=== PATIENT | male | born 1975 | race Caucasian/White ===

== ENCOUNTER 2017-07-30 23:54 | Emergency (ER) | payer SELFPAY ==
[2017-07-30] MEDS ORDERED: Albuterol/Ipratropium 3.0-0.5 MG/3 ML Neb Soln NEB ONE (23:55)
[2017-07-31] MEDS ORDERED: methylPREDNISolone Sodium Succinate 125 MG/2 ML SDV ONE
[2017-07-31] MEDS ORDERED: methylPREDNISolone Sodium Succinate 125 MG/2 ML SDV IVPUSH ONE (00:08)
--- NOTE | 2017-07-31 00:32 | EDM.PDOC ---
ED HPI GENERAL MEDICAL PROBLEM - General Chief Complaint: Respiratory Problem Stated Complaint: SHORTNESS OF BREATH Time Seen by Provider: 07/31/17 00:15 - History of Present Illness INITIAL COMMENTS - FREE TEXT/NARRATIVE: HISTORY AND PHYSICAL: History of present illness: Patient 42-year-old male presents concerned shortness of breath and wheezing he states he's had similar episodes in the past and has used an inhaler but states he's had Pulmicort function test and has not been diagnosed with asthma. He denies fever chills nausea vomiting chest pain or other concern Review of systems: As per history of present illness and below otherwise all systems reviewed and negative. Past medical history: As per history of present illness and as reviewed below otherwise noncontributory. Surgical history: As per history of present illness and as reviewed below otherwise noncontributory. Social history: No reported history of drug or alcohol abuse. Family history: As per history of present illness and as reviewed below otherwise noncontributory. Physical exam: HEENT: Atraumatic, normocephalic, pupils reactive, negative for conjunctival pallor or scleral icterus, mucous membranes moist, throat clear, neck supple, nontender, trachea midline. Lungs: GERD wheezing breath sounds equal bilaterally, chest nontender. Heart: S1S2, regular, negative for clicks, rubs, or JVD. Abdomen: Soft, nondistended, nontender. Negative for masses or hepatosplenomegaly. Negative for costovertebral tenderness. Pelvis: Stable nontender. Genitourinary: Deferred. Rectal: Deferred. Extremities: Atraumatic, negative for cords or calf pain. Neurovascular unremarkable. Neuro: Awake, alert, oriented. Cranial nerves II through XII unremarkable. Cerebellum unremarkable. Motor and sensory unremarkable throughout. Exam nonfocal. Diagnostics: CBC CMP chest x-ray influenza screening Therapeutics: Ipratropium albuterol nebulizer Solu-Medrol 125 mg IV Impression: #1 dyspnea #2 reactive airway disease Definitive disposition and diagnosis as appropriate pending reevaluation and review of above. head Pain Score (Numeric/FACES): 9 - Related Data Allergies Allergy/AdvReac Type Severity Reaction Status Date / Time No Known Allergies Allergy Verified 07/31/17 00:06 Home Meds: Home Meds Albuterol [Ventolin HFA] 0 07/31/17 [History] ED ROS GENERAL - Review of Systems Review Of Systems: ROS reveals no pertinent complaints other than HPI. ED EXAM, GENERAL - Physical Exam Exam: See Below (Dictation) Course - Vital Signs Last Recorded V/S: Last Vital Signs Temp 37.1 C 07/30/17 23:54 Pulse 96 07/31/17 00:35 Resp 24 H 07/31/17 00:35 BP 105/63 07/31/17 00:35 Pulse Ox 96 07/31/17 00:35 - Orders/Labs/Meds Orders: Active Orders 24 hr Category Date Time Status RT Aerosol Therapy [RC] ASDIRECTED Care 07/30/17 23:55 Active Chest 2V [CR] Stat Exams 07/30/17 23:55 Taken Labs: Laboratory Tests 07/31/17 07/31/17 Range/Units 00:00 00:00 WBC 8.33 (4.0-11.0) K/uL RBC 4.62 (4.50-5.90) M/uL Hgb 13.9 (13.0-17.0) g/dL Hct 41.8 (38.0-50.0) % MCV 90.5 (80.0-98.0) fL MCH 30.1 (27.0-32.0) pg MCHC 33.3 (31.0-37.0) g/dL RDW Std Deviation 49.1 (28.0-62.0) fl RDW Coeff of Bonnie 15 (11.0-15.0) % Plt Count 316 (150-400) K/uL MPV 9.60 (7.40-12.00) fL Neut % (Auto) 37.5 L (48.0-80.0) % Lymph % (Auto) 39.0 (16.0-40.0) % [place] % (Auto) 8.5 (0.0-15.0) % Eos % (Auto) 14.2 H (0.0-7.0) % Baso % (Auto) 0.8 (0.0-1.5) % Neut # (Auto) 3.1 (1.4-5.7) K/uL Lymph # (Auto) 3.3 H (0.6-2.4) K/uL [place] # (Auto) 0.7 (0.0-0.8) K/uL Eos # (Auto) 1.2 H (0.0-0.7) K/uL Baso # (Auto) 0.1 (0.0-0.1) K/uL Nucleated RBC % 0.0 /100WBC Nucleated RBCs # 0 K/uL Sodium 141 (136-146) mmol/L Potassium 4.4 (3.5-5.1) mmol/L Chloride 103 (98-110) mmol/L Carbon Dioxide 27 (21-31) mmol/L BUN 29 H (6.0-23.0) mg/dL Creatinine 1.5 (0.6-1.5) mg/dL Est Cr Clr Drug Dosing TNP Estimated GFR (MDRD) 51.3 ml/min Glucose 115 H (60-110) mg/dL Calcium 9.9 (8.8-10.8) mg/dL Total Bilirubin 0.4 (0.1-1.5) mg/dL AST 23 (5-40) IU/L ALT 35 (8-54) IU/L Alkaline Phosphatase 39 L (40-150) Total Protein 7.3 (6.0-8.0) g/dL Albumin 4.3 (3.5-5.0) g/dL Globulin 3.0 (2.0-3.5) g/dL Albumin/Globulin Ratio 1.4 (1.3-2.8) Meds: Medications Discontinued Medications Generic Name Dose Route Start Last Admin Trade Name Freq PRN Reason Stop Dose Admin Albuterol/Ipratropium 3 ml 07/30/17 23:55 07/31/17 00:08 Duoneb 3.0-0.5 Mg/3 Ml NEB 07/30/17 23:56 3 ml ONETIME ONE Administration Methylprednisolone Sodium Succinate Confirm 07/31/17 00:00 07/31/17 00:09 Solu-Medrol Administered 07/31/17 00:01 Not Given Dose 125 mg .ROUTE .STK-MED ONE Methylprednisolone Sodium Succinate 125 mg 07/31/17 00:08 07/31/17 00:09 Solu-Medrol IVPUSH 07/31/17 00:09 125 mg ONETIME ONE Administration Departure - Departure Time of Disposition: 01:11 Disposition: Home, Self-Care 01 Condition: Good Clinical Impression: Reactive airway disease - Discharge Information Forms: ED Department Discharge Additional Instructions: The following information is given to patients seen in the emergency department who are being discharged to home. This information is to outline your options for follow-up care. We provide all patients seen in our emergency department with a follow-up referral. The need for follow-up, as well as the timing and circumstances, are variable depending upon the specifics of your emergency department visit. If you don't have a primary care physician on staff, we will provide you with a referral. We always advise you to contact your personal physician following an emergency department visit to inform them of the circumstance of the visit and for follow-up with them and/or the need for any referrals to a consulting specialist. The emergency department will also refer you to a specialist when appropriate. This referral assures that you have the opportunity for followup care with a specialist. All of these measure are taken in an effort to provide you with optimal care, which includes your followup. Under all circumstances we always encourage you to contact your private physician who remains a resource for coordinating your care. When calling for followup care, please make the office aware that this follow-up is from your recent emergency room visit. If for any reason you are refused follow-up, please contact the [facility] emergency department at and asked to speak to the emergency department charge nurse. Albuterol Medrol as prescribed follow-up primary medical doctor 1-2 days return as needed as discussed - My Orders Last 24 Hours: My Active Orders 07/30/17 23:55 RT Aerosol Therapy [RC] ASDIRECTED Chest 2V [CR] Stat - Assessment/Plan Last 24 Hours: My Active Orders 07/30/17 23:55 RT Aerosol Therapy [RC] ASDIRECTED Chest 2V [CR] Stat
[2017-07-31 00:45] LABS: CHLORIDE,CL 103 mmol/L (98-110); SODIUM,NA 141 mmol/L (136-146)
[2017-07-31] MEDS ORDERED: Albuterol/Ipratropium 3.0-0.5 MG/3 ML Neb Soln NEB ONE (01:13)
--- NOTE | 2017-07-31 09:18 | CR ---
EXAM DATE: 07/30/17 PATIENT'S AGE: 42 Patient: ERVIN CUNNINGHAM Facility: [place], [place] Site . Site : [id number] Study: XRay Chest [id number]/[id number] 12:20:59 AM Ordering Physician: Doctor Rivera Final Report: INDICATION: Shortness of breath TECHNIQUE: Chest 2 views. COMPARISON: None FINDINGS: Cardiovascular and mediastinum: Heart size and vasculature are normal in caliber and appearance. Mediastinum is within normal limits. Lungs and pleural spaces: Lungs are clear. No sign of infiltrate or mass. No sign of pleural effusion. No pneumothorax. Bones and soft tissues: No significant findings. IMPRESSION: No sign of acute disease. Dictated by Charisma Harding MD @ Jul 31 2017 12:23AM (Electronic Signature) Report Signed by Proxy. GEOVANNA
== END 2017-07-31 01:40 | disposition home or self-care (01) ==
LOC: MW.ED 23:54
DX: J45.909 Unspecified asthma, uncomplicated (principal)
CPT/HCPCS: 36415; 71046; 80053; 85025; 87804; 94640; 96374; 99285; J2930; 99283

== ENCOUNTER 2018-12-01 16:01 | Emergency (ER) | payer SELFPAY ==
[2018-12-01] MEDS ORDERED: Ketorolac 30 MG/ML SDV IVPUSH ONE (16:33)
[2018-12-01] MEDS ORDERED: Sodium Chloride 0.9% 1,000 ML IV ONE (16:33)
--- NOTE | 2018-12-01 16:35 | EDM.PDOC ---
<Lyudmila Martinez - Last Filed: 12/01/18 22:17> ED HPI GENERAL MEDICAL PROBLEM - General Chief Complaint: General Stated Complaint: DONT FEEL GOOD Time Seen by Provider: 12/01/18 16:11 Source of Information: Reports: Patient History Limitations: Reports: No Limitations - History of Present Illness INITIAL COMMENTS - FREE TEXT/NARRATIVE: HISTORY AND PHYSICAL: History of present illness: Patient is a 43-year-old male presents to the ED today with concern of general malaise and being tired 2 days, worsening over the past 24 hours. Patient states he also has generalized body aches. Patient states he arrived at work today and sat down in a chair and felt like he could not physically get up to work. Patient came to the ED after work states this is unusual for him. Patient states he went to the gym to lift weights 7 days in a row (last week) and shortly after noticed that he has been feeling this way. Patient states he doesn 't typically lift weights this much. Patient states he is also concerned that he may have sexually transmitted infection which would be causing his symptoms. Patient states he has a history of asthma but denies any other health history. Patient states he does not use tobacco, alcohol, or any other substances. Patient denies fever, chills, chest pain, shortness of breath, or cough. Denies headache, neck stiff ness, change in vision, syncope, or near syncope. Denies nausea, vomiting, abdominal pain, diarrhea, constipation, or dysuria. Has not noted any blood in urine or stool. Patient has been eating and drinking appropriately. Review of systems: As per history of present illness and below otherwise all systems reviewed and negative. Past medical history: As per history of present illness and as reviewed below otherwise noncontributory. Surgical history: As per history of present illness and as reviewed below otherwise noncontributory. Social history: See social history for further information Family history: As per history of present illness and as reviewed below otherwise noncontributory. Physical exam: General: Patient is alert, oriented, and in no acute distress. Patient laying comfortably on exam table but does appear tired. HEENT: Atraumatic, normocephalic, pupils equal and reactive bilaterally, negative for conjunctival pallor or scleral icterus, mucous membranes moist, TMs normal bilaterally, throat clear, neck supple, nontender, trachea midline. No drooling or trismus noted. No meningeal signs. No hot potato voice noted. Lungs: Clear to auscultation, breath sounds equal bilaterally, chest nontender. Heart: S1S2, regular rate and rhythm without overt murmur Abdomen: Soft, nondistended, nontender. Negative for masses or hepatosplenomegaly. Negative for costovertebral tenderness. Pelvis: Stable nontender. Genitourinary: Deferred. Rectal: Deferred. Skin: Intact, warm, dry. No lesions or rashes noted. Extremities: Atraumatic, negative for cords or calf pain. Neurovascular unremarkable. Neuro: Awake, alert, oriented. Cranial nerves II through XII unremarkable. Cerebellum unremarkable. Motor and sensory unremarkable throughout. Exam nonfocal. Notes: Dr. Palmer involved in patient care. We are having issues with EMS transfers not available, as well as our hospital being at capacity with no beds available. Patient remained in ER and repeat troponin was done. The troponin has increased. Working on arranging EMS transfer from further out facilities. Patient remains with no chest pain and denies any other symptoms or new symptoms. No changes in repeat EKG. We'll continue to monitor patient presents stating ED. [facility] in [place] was consult on patient and will transfer to Dr. Miguel via EMS. instructed to hold nitropaste per Dr. Migule. Ambulance arranged and remains 2.5 to 3 hours out. Patient made aware and remains chest pain free. Voices understanding and is agreeable to plan of care. Denies any further questions or concerns at this time. Diagnostics: CBC, CMP, UA, CPK, influenza, and increased jannet, strep, troponinx2, EKG x2, chest x-ray Therapeutics: Saline, Toradol, Lovenox, ASA Impression: Elevated troponin General malaise Plan: 1. Transfer to [facility] to Dr. Miguel via EMS. Definitive disposition and diagnosis as appropriate pending reevaluation and review of above. generalized Pain Score (Numeric/FACES): 2 - Related Data Allergies Allergy/AdvReac Type Severity Reaction Status Date / Time No Known Allergies Allergy Verified 12/01/18 16:14 Home Meds: Home Meds Albuterol [Ventolin HFA] 1 - 2 puff INH Q4H PRN 07/31/17 [History] Budesonide/Formoterol [Symbicort 160-4.5 MCG] 2 puff INH BID 12/01/18 [History] Past Medical History - Past Health History Medical/Surgical History: Denies Medical/Surgical History Respiratory History: Reports: Bronchitis, Recurrent - Infectious Disease History Infectious Disease History: Reports: Chicken Pox - Past Surgical History HEENT Surgical History: Reports: Naso-Sinus Surgery GI Surgical History: Reports: Hernia Repair/Other, Other (See Below) Other GI Surgeries/Procedures: Hernia Social & Family History - Family History Family Medical History: Noncontributory Cardiac: Reports: CAD Respiratory: Reports: Asthma - Tobacco Use Smoking Status *Q: Never Smoker - Recreational Drug Use Recreational Drug Use: No ED ROS GENERAL - Review of Systems Review Of Systems: ROS reveals no pertinent complaints other than HPI. ED EXAM, GENERAL - Physical Exam Exam: See Below (See dictation) Course - Vital Signs Last Recorded V/S: Last Vital Signs Temp 36.3 C 12/02/18 00:32 Pulse 52 L 12/02/18 00:32 Resp 16 12/02/18 00:32 BP 132/76 12/02/18 00:32 Pulse Ox 96 12/02/18 00:32 - Orders/Labs/Meds Orders: Active Orders 24 hr Category Date Time Status EKG Documentation Completion [RC] STAT Care 12/01/18 16:32 Active EKG Documentation Completion [RC] STAT Care 12/01/18 18:42 Active EKG Documentation Completion [RC] STAT Care 12/02/18 01:20 Active CHLAMYDIA AND GONORRHEA BY TMA Stat Lab 12/01/18 18:36 Received CULTURE STREP A CONFIRMATION [RM] Stat Lab 12/01/18 16:24 Results STREP SCRN A RAPID W CULT CONF [RM] Stat Lab 12/01/18 16:24 Results TROPONIN I [CHEM] Stat Lab 12/02/18 01:20 Ordered Labs: Laboratory Tests 12/01/18 12/01/18 12/01/18 Range/Units 16:22 16:22 16:44 WBC 7.97 (4.0-11.0) K/uL RBC 5.22 (4.50-5.90) M/uL Hgb 14.7 (13.0-17.0) g/dL Hct 45.7 (38.0-50.0) % MCV 87.5 (80.0-98.0) fL MCH 28.2 (27.0-32.0) pg MCHC 32.2 (31.0-37.0) g/dL RDW Std Deviation 56.7 (28.0-62.0) fl RDW Coeff of Bonnie 18 H (11.0-15.0) % Plt Count 334 (150-400) K/uL MPV 11.30 (7.40-12.00) fL Neut % (Auto) 52.4 (48.0-80.0) % Lymph % (Auto) 26.2 (16.0-40.0) % [place] % (Auto) 12.0 (0.0-15.0) % Eos % (Auto) 8.8 H (0.0-7.0) % Baso % (Auto) 0.6 (0.0-1.5) % Neut # (Auto) 4.2 (1.4-5.7) K/uL Lymph # (Auto) 2.1 (0.6-2.4) K/uL [place] # (Auto) 1.0 H (0.0-0.8) K/uL Eos # (Auto) 0.7 (0.0-0.7) K/uL Baso # (Auto) 0.1 (0.0-0.1) K/uL Nucleated RBC % 0.0 /100WBC Nucleated RBCs # 0 K/uL Sodium 141 (136-148) mmol/L Potassium 4.4 (3.5-5.1) mmol/L Chloride 108 H (98-107) mmol/L Carbon Dioxide 24.0 (21.0-32.0) mmol/L BUN 23 H (7.0-18.0) mg/dL Creatinine 1.3 (0.8-1.3) mg/dL Est Cr Clr Drug Dosing 85.19 mL/min Estimated GFR (MDRD) > 60.0 ml/min Glucose 127 H (74-106) mg/dL Calcium 8.8 (8.5-10.1) mg/dL Total Bilirubin 0.4 (0.2-1.0) mg/dL AST 31 (15-37) IU/L ALT 131 H (14-63) IU/L Alkaline Phosphatase 45 L (46-116) U/L Creatine Kinase 273 (26-308) U/L Troponin I 0.102 H* (0.000-0.056) ng/mL Total Protein 7.0 (6.4-8.2) g/dL Albumin 3.5 (3.4-5.0) g/dL Globulin 3.5 (2.6-4.0) g/dL Albumin/Globulin Ratio 1.0 (0.9-1.6) Urine Color Urine Appearance Urine pH (5.0-8.0) Ur Specific [place] (1.001-1.035) Urine Protein (NEGATIVE) mg/dL Urine Glucose (UA) (NEGATIVE) mg/dL Urine Ketones (NEGATIVE) mg/dL Urine Occult Blood (NEGATIVE) Urine Nitrite (NEGATIVE) Urine Bilirubin (NEGATIVE) Urine Urobilinogen (<2.0) EU/dL Ur Leukocyte Esterase (NEGATIVE) 12/01/18 12/01/18 Range/Units 18:36 19:54 WBC (4.0-11.0) K/uL RBC (4.50-5.90) M/uL Hgb (13.0-17.0) g/dL Hct (38.0-50.0) % MCV (80.0-98.0) fL MCH (27.0-32.0) pg MCHC (31.0-37.0) g/dL RDW Std Deviation (28.0-62.0) fl RDW Coeff of Bonnie (11.0-15.0) % Plt Count (150-400) K/uL MPV (7.40-12.00) fL Neut % (Auto) (48.0-80.0) % Lymph % (Auto) (16.0-40.0) % [place] % (Auto) (0.0-15.0) % Eos % (Auto) (0.0-7.0) % Baso % (Auto) (0.0-1.5) % Neut # (Auto) (1.4-5.7) K/uL Lymph # (Auto) (0.6-2.4) K/uL [place] # (Auto) (0.0-0.8) K/uL Eos # (Auto) (0.0-0.7) K/uL Baso # (Auto) (0.0-0.1) K/uL Nucleated RBC % /100WBC Nucleated RBCs # K/uL Sodium (136-148) mmol/L Potassium (3.5-5.1) mmol/L Chloride (98-107) mmol/L Carbon Dioxide (21.0-32.0) mmol/L BUN (7.0-18.0) mg/dL Creatinine (0.8-1.3) mg/dL Est Cr Clr Drug Dosing mL/min Estimated GFR (MDRD) ml/min Glucose (74-106) mg/dL Calcium (8.5-10.1) mg/dL Total Bilirubin (0.2-1.0) mg/dL AST (15-37) IU/L ALT (14-63) IU/L Alkaline Phosphatase (46-116) U/L Creatine Kinase (26-308) U/L Troponin I 0.107 H* (0.000-0.056) ng/mL Total Protein (6.4-8.2) g/dL Albumin (3.4-5.0) g/dL Globulin (2.6-4.0) g/dL Albumin/Globulin Ratio (0.9-1.6) Urine Color YELLOW Urine Appearance CLEAR Urine pH 7.5 (5.0-8.0) Ur Specific [place] 1.015 (1.001-1.035) Urine Protein NEGATIVE (NEGATIVE) mg/dL Urine Glucose (UA) NEGATIVE (NEGATIVE) mg/dL Urine Ketones NEGATIVE (NEGATIVE) mg/dL Urine Occult Blood NEGATIVE (NEGATIVE) Urine Nitrite NEGATIVE (NEGATIVE) Urine Bilirubin NEGATIVE (NEGATIVE) Urine Urobilinogen 1.0 (<2.0) EU/dL Ur Leukocyte Esterase NEGATIVE (NEGATIVE) Meds: Medications Discontinued Medications Generic Name Dose Route Start Last Admin Trade Name Freq PRN Reason Stop Dose Admin Aspirin 324 mg 12/01/18 17:39 12/01/18 17:43 Aspirin PO 12/01/18 17:40 324 mg ONETIME ONE Administration Enoxaparin Sodium 100 mg 12/01/18 20:35 12/01/18 20:53 Lovenox SUBCUT 12/01/18 20:36 100 mg ONETIME ONE Administration Sodium Chloride 1,000 mls @ 999 mls/hr 12/01/18 16:33 12/01/18 16:54 Normal Saline IV 12/01/18 17:33 999 mls/hr STAT ONE Administration Ketorolac Tromethamine 30 mg 12/01/18 16:33 12/01/18 16:53 Toradol IVPUSH 12/01/18 16:34 Not Given ONETIME ONE Departure - Departure Time of Disposition: 21:03 Disposition: DC/Tfer to Acute Hospital 02 Clinical Impression: Elevated troponin, Malaise - Discharge Information Referrals: PCP,None [Primary Care Provider] - - My Orders Last 24 Hours: My Active Orders 12/02/18 01:20 EKG Documentation Completion [RC] STAT TROPONIN I [CHEM] Stat - Assessment/Plan Last 24 Hours: My Active Orders 12/02/18 01:20 EKG Documentation Completion [RC] STAT TROPONIN I [CHEM] Stat <Shelly Palmer - Last Filed: 12/02/18 01:24> ED HPI GENERAL MEDICAL PROBLEM - History of Present Illness INITIAL COMMENTS - FREE TEXT/NARRATIVE: This is Dr. Palmer dictating an addendum note as this patient is currently waiting for transportation to [facility]. The patient's second troponin did elevate slightly from the first and currently in the ED at 1:15 AM he is not having any chest pain and asked for food which we have gotten for him. We will repeat an EKG and another troponin for his future care. We will check into see one ambulance will be arriving as were told it would be very soon. Please add to impression above: r/o NSTEMI GA ED ROS GENERAL - Review of Systems Review Of Systems: ROS reveals no pertinent complaints other than HPI. ED EXAM, GENERAL - Physical Exam Exam: See Below Departure - Departure Condition: Good
[2018-12-01 17:03] LABS: CHLORIDE,CL 108 mmol/L (98-107); SODIUM,NA 141 mmol/L (136-148)
--- NOTE | 2018-12-01 17:37 | CR ---
INDICATION: Weakness. Lightheaded. TECHNIQUE: Chest 2 views COMPARISON: 07/31/2017. FINDINGS: Cardiovascular and mediastinum: Heart size and vasculature are normal in caliber and appearance. Lungs and pleural spaces: Lungs are clear. No sign of infiltrate or mass. No sign of pleural effusion. No pneumothorax. Bones and soft tissues: No significant findings. IMPRESSION: No acute findings and no significant changes from the prior exam. Dictated by Tristian Lopez MD @ Dec 01 2018 5:33PM Signed by Dr. Tristian Lopez @ Dec 01 2018 5:34PM
[2018-12-01] MEDS ORDERED: Aspirin 81 MG Tab.Chew PO ONE (17:39)
[2018-12-01] MEDS ORDERED: Enoxaparin 100 MG/1 ML Syringe SUBCUT ONE (20:35)
== END 2018-12-02 02:30 ==
LOC: MW.ED 16:01
DX: R53.81 Other malaise (principal); R79.89 Other specified abnormal findings of blood chemistry; Z79.899 Other long term (current) drug therapy
CPT/HCPCS: 36415; 71046; 80053; 81003; 82550; 84484; 85025; 87081; 87491; 87591; 87804; 87880; 93005; 96360; 96372; 99285; A9270; J1650; J7040

== ENCOUNTER 2021-04-04 17:19 | Emergency (ER) | payer OTHER ==
[2021-04-04] MEDS ORDERED: Sodium Chloride 0.9% 1,000 ML IV ONE (17:41)
--- NOTE | 2021-04-04 17:44 | EDM.PDOC ---
<Darwin Hirsch - Last Filed: 04/04/21 18:49> ED HPI GENERAL MEDICAL PROBLEM - General Chief Complaint: Abdominal Pain Stated Complaint: LETHARGIC, DULL PAIN RT SIDE Time Seen by Provider: 04/04/21 17:21 Source of Information: Reports: Patient History Limitations: Reports: No Limitations - History of Present Illness INITIAL COMMENTS - FREE TEXT/NARRATIVE: 46-year-old male past medical history asthma presents for right lower quadrant abdominal pain, generalized fatigue for roughly the last 2 weeks. Patient notes that he has been sleeping 10 hours a day which is unusual for him. He notes a dull achy sensation in his right lower quadrant abdomen. He denies any dysuria or hematuria but notes that he often gets up multiple times in the middle of the night to urinate and is only able to urinate a little bit. He denies any chest pain, cough, shortness of breath. He does note a feeling of dizziness and lightheadedness but denies headache. headache, right sided abdominal Pain Score (Numeric/FACES): 2 - Related Data Allergies Allergy/AdvReac Type Severity Reaction Status Date / Time No Known Allergies Allergy Verified 04/04/21 17:31 Home Meds: Home Meds Albuterol [Ventolin HFA] 1 - 2 puff INH Q4H PRN 07/31/17 [History] Budesonide/Formoterol [Symbicort 160-4.5 MCG] 2 puff INH BID 12/01/18 [History] Escitalopram [Lexapro] 20 mg PO DAILY 04/04/21 [History] Past Medical History - Past Health History Medical/Surgical History: Denies Medical/Surgical History Respiratory History: Reports: Asthma, Bronchitis, Recurrent Psychiatric History: Reports: Depression Other Endocrine/Metabolic History: Adrenal gland removed - Infectious Disease History Infectious Disease History: Reports: Chicken Pox - Past Surgical History HEENT Surgical History: Reports: Naso-Sinus Surgery GI Surgical History: Reports: Hernia, Inguinal, Hernia Repair/Other, Other (See Below) Other GI Surgeries/Procedures: Hernia Social & Family History - Family History Family Medical History: No Pertinent Family History Cardiac: Reports: CAD Respiratory: Reports: Asthma - Tobacco Use Tobacco Use Status *Q: Never Tobacco User - Recreational Drug Use Recreational Drug Use: No ED ROS GENERAL - Review of Systems Review Of Systems: Comprehensive ROS is negative, except as noted in HPI. ED EXAM, GENERAL - Physical Exam Exam: See Below Exam Limited By: No Limitations General Appearance: Alert, WD/WN, No Apparent Distress Ears: Hearing Grossly Normal Throat/Mouth: Normal Voice, No Airway Compromise Head: Atraumatic, Normocephalic Respiratory/Chest: No Respiratory Distress, Lungs Clear, Normal Breath Sounds, No Accessory Muscle Use GI/Abdominal: Soft, Non-Tender Back Exam: No: CVA Tenderness (L), CVA Tenderness (R) Extremities: Normal Inspection Neurological: Alert, Normal Cognition, Normal Gait Psychiatric: Normal Affect, Normal Mood Skin Exam: Warm, Dry, Intact, Normal Color #1 Interpretation EKG Date: 04/04/21 Time: 17:52 Rhythm: NSR Rate (Beats/Min): 187 [place]: Normal P-Wave: Present QRS: Normal ST-T: Normal QT: Normal SC/PQ Interval: 187 Comparison: NA - No Prior EKG EKG Interpretation Comments: T wave inversion in leadIII otherwise unremarkable Course - Re-Assessments/Exams Free Text/Narrative Re-Assessment/Exam: 04/04/21 19:00 Patient care transition to Dr. Bey pending imaging; labs unremarkable. UA pending Departure - Departure Disposition: Home, Self-Care 01 Clinical Impression: General medical exam, Viral illness - Discharge Information Instructions: Viral Illness, Adult Referrals: Tay Churchill MD [Primary Care Provider] - Forms: ED Department Discharge Additional Instructions: The following information is given to patients seen in the emergency department who are being discharged to home. This information is to outline your options for follow-up care. We provide all patients seen in our emergency department with a follow-up referral. The need for follow-up, as well as the timing and circumstances, are variable depending upon the specifics of your emergency department visit. If you don't have a primary care physician on staff, we will provide you with a referral. We always advise you to contact your personal physician following an emergency department visit to inform them of the circumstance of the visit and for follow-up with them and/or the need for any referrals to a consulting specialist. The emergency department will also refer you to a specialist when appropriate. This referral assures that you have the opportunity for follow-up care with a specialist. All of these measure are taken in an effort to provide you with optimal care, which includes your follow-up. Under all circumstances we always encourage you to contact your private physician who remains a resource for coordinating your care. When calling for follow-up care, please make the office aware that this follow-up is from your recent emergency room visit. If for any reason you are refused follow-up, please contact the [facility] Emergency Department at and asked to speak to the emergency department charge nurse. Please follow up with your primary care physician. If you do not have a primary care physician, see below: [facility] [address] [place] [id number] My [facility] [address] [place] [id number] You are seen today after stating you did not feel well. We did a CT scan of your abdomen did not show any concerning findings we also did EKG and lab work heart everything came within normal limits. You may have a early viral illness recommend continue to stay hydrated take Tylenol Motrin as needed and follow-up with her primary care physician if you have any other concerning signs or symptoms please return to the ED immediately. Sepsis Event Note (ED) - Evaluation Sepsis Screening Result: No Definite Risk <Dvaon Bey - Last Filed: 04/04/21 20:13> Course - Vital Signs Last Recorded V/S: Last Vital Signs Temp 96.7 F L 04/04/21 17:28 Pulse 57 L 04/04/21 19:35 Resp 18 04/04/21 17:28 BP 126/89 04/04/21 19:35 Pulse Ox 96 04/04/21 19:35 - Orders/Labs/Meds Orders: Active Orders 24 hr Category Date Time Status Saline Lock Insert [OM.PC] Stat Oth 04/04/21 17:41 Ordered Labs: Laboratory Tests 04/04/21 04/04/21 04/04/21 Range/Units 16:05 17:50 17:55 WBC 6.47 (4.0-11.0) K/uL RBC 4.53 (4.50-5.90) M/uL Hgb 13.9 (13.0-17.0) g/dL Hct 40.1 (38.0-50.0) % MCV 88.5 (80.0-98.0) fL MCH 30.7 (27.0-32.0) pg MCHC 34.7 (31.0-37.0) g/dL RDW Std Deviation 42.3 (28.0-62.0) fl RDW Coeff of Bonnie 13 (11.0-15.0) % Plt Count 241 (150-400) K/uL MPV 9.90 (7.40-12.00) fL Neut % (Auto) 51.2 (48.0-80.0) % Lymph % (Auto) 31.5 (16.0-40.0) % [place] % (Auto) 8.2 (0.0-15.0) % Eos % (Auto) 8.8 H (0.0-7.0) % Baso % (Auto) 0.3 (0.0-1.5) % Neut # (Auto) 3.3 (1.4-5.7) K/uL Lymph # (Auto) 2.0 (0.6-2.4) K/uL [place] # (Auto) 0.5 (0.0-0.8) K/uL Eos # (Auto) 0.6 (0.0-0.7) K/uL Baso # (Auto) 0.0 (0.0-0.1) K/uL Nucleated RBC % 0.0 /100WBC Nucleated RBCs # 0 K/uL Sodium 141 (136-148) mmol/L Potassium 4.3 (3.5-5.1) mmol/L Chloride 101 (98-107) mmol/L Carbon Dioxide 29.4 (21.0-32.0) mmol/L BUN 17 (7.0-18.0) mg/dL Creatinine 1.0 (0.8-1.3) mg/dL Est Cr Clr Drug Dosing 107.32 mL/min Estimated GFR (MDRD) > 60.0 ml/min Glucose 117 H (74-106) mg/dL Calcium 8.8 (8.5-10.1) mg/dL Total Bilirubin 0.4 (0.2-1.0) mg/dL AST 21 (15-37) IU/L ALT 42 (14-63) IU/L Alkaline Phosphatase 65 (46-116) U/L Troponin I < 0.050 (0.000-0.056) ng/mL Total Protein 7.2 (6.4-8.2) g/dL Albumin 3.8 (3.4-5.0) g/dL Globulin 3.4 (2.6-4.0) g/dL Albumin/Globulin Ratio 1.1 (0.9-1.6) Lipase 97 (73-393) U/L Urine Color Urine Appearance Urine pH (5.0-8.0) Ur Specific Young (1.001-1.035) Urine Protein (NEGATIVE) mg/dL Urine Glucose (UA) (NEGATIVE) mg/dL Urine Ketones (NEGATIVE) mg/dL Urine Occult Blood (NEGATIVE) Urine Nitrite (NEGATIVE) Urine Bilirubin (NEGATIVE) Urine Urobilinogen (<2.0) EU/dL Ur Leukocyte Esterase (NEGATIVE) SARS-CoV-2 RNA (TITO) NEGATIVE (NEGATIVE) 04/04/21 Range/Units 18:00 WBC (4.0-11.0) K/uL RBC (4.50-5.90) M/uL Hgb (13.0-17.0) g/dL Hct (38.0-50.0) % MCV (80.0-98.0) fL MCH (27.0-32.0) pg MCHC (31.0-37.0) g/dL RDW Std Deviation (28.0-62.0) fl RDW Coeff of Bonnie (11.0-15.0) % Plt Count (150-400) K/uL MPV (7.40-12.00) fL Neut % (Auto) (48.0-80.0) % Lymph % (Auto) (16.0-40.0) % [place] % (Auto) (0.0-15.0) % Eos % (Auto) (0.0-7.0) % Baso % (Auto) (0.0-1.5) % Neut # (Auto) (1.4-5.7) K/uL Lymph # (Auto) (0.6-2.4) K/uL [place] # (Auto) (0.0-0.8) K/uL Eos # (Auto) (0.0-0.7) K/uL Baso # (Auto) (0.0-0.1) K/uL Nucleated RBC % /100WBC Nucleated RBCs # K/uL Sodium (136-148) mmol/L Potassium (3.5-5.1) mmol/L Chloride (98-107) mmol/L Carbon Dioxide (21.0-32.0) mmol/L BUN (7.0-18.0) mg/dL Creatinine (0.8-1.3) mg/dL Est Cr Clr Drug Dosing mL/min Estimated GFR (MDRD) ml/min Glucose (74-106) mg/dL Calcium (8.5-10.1) mg/dL Total Bilirubin (0.2-1.0) mg/dL AST (15-37) IU/L ALT (14-63) IU/L Alkaline Phosphatase (46-116) U/L Troponin I (0.000-0.056) ng/mL Total Protein (6.4-8.2) g/dL Albumin (3.4-5.0) g/dL Globulin (2.6-4.0) g/dL Albumin/Globulin Ratio (0.9-1.6) Lipase (73-393) U/L Urine Color YELLOW Urine Appearance CLEAR Urine pH 7.0 (5.0-8.0) Ur Specific Young 1.020 (1.001-1.035) Urine Protein NEGATIVE (NEGATIVE) mg/dL Urine Glucose (UA) NEGATIVE (NEGATIVE) mg/dL Urine Ketones NEGATIVE (NEGATIVE) mg/dL Urine Occult Blood NEGATIVE (NEGATIVE) Urine Nitrite NEGATIVE (NEGATIVE) Urine Bilirubin NEGATIVE (NEGATIVE) Urine Urobilinogen 0.2 (<2.0) EU/dL Ur Leukocyte Esterase NEGATIVE (NEGATIVE) SARS-CoV-2 RNA (TITO) (NEGATIVE) Meds: Medications Discontinued Medications Generic Name Dose Route Start Last Admin Trade Name Freq PRN Reason Stop Dose Admin Sodium Chloride 1,000 mls @ 999 mls/hr 04/04/21 17:41 04/04/21 17:50 Normal Saline IV 04/04/21 18:41 999 mls/hr .Bolus ONE Administration Iopamidol 100 ml 04/04/21 18:42 04/04/21 18:42 Iopamidol 755 Mg/Ml 500 Ml Multipack Bottle IVPUSH 04/04/21 18:43 100 ml ONETIME STA Administration - Re-Assessments/Exams Free Text/Narrative Re-Assessment/Exam: 04/04/21 20:[address] reviewed patient vital signs or stable. Patient feels better does not have any fluids. Patient probably has a viral syndrome. Patient given strict return cautions will follow with PMD Departure - Departure Time of Disposition: 20:12 Condition: Good - Discharge Information *PRESCRIPTION DRUG MONITORING PROGRAM REVIEWED*: Not Applicable *COPY OF PRESCRIPTION DRUG MONITORING REPORT IN PATIENT JOSE ALFREDO: Not Applicable Sepsis Event Note (ED) - Focused Exam Vital Signs: Vital Signs Temp Pulse Resp BP Pulse Ox 04/04/21 19:35 57 L 126/89 96 04/04/21 19:05 55 L 125/84 97 04/04/21 18:35 57 L 128/86 96 04/04/21 18:13 111 H 134/87 100 04/04/21 17:28 96.7 F L 65 18 152/96 H 94 L
[2021-04-04 18:30] LABS: BLOOD UREA NITROGEN,BUN 17 mg/dL (7.0-18.0); CARBON DIOXIDE,CO2 29.4 mmol/L (21.0-32.0); CHLORIDE,CL 101 mmol/L (98-107); GLUCOSE RANDOM 117 mg/dL (74-106); LIPASE 97 U/L (73-393); POTASSIUM,K 4.3 mmol/L (3.5-5.1); SODIUM,NA 141 mmol/L (136-148)
[2021-04-04] MEDS ORDERED: Iopamidol 755 MG/ML 500 ML Multipack Bottle IVPUSH STA (18:42)
--- NOTE | 2021-04-04 19:35 | CT ---
INDICATION: Right lower quadrant pain, fatigue TECHNIQUE: CT Abdomen and pelvis with i.v. contrast. Coronal and sagittal reformats were obtained. CONTRAST: 100 mL Isovue 370 COMPARISON: None FINDINGS: Lower chest: Unremarkable. Liver: Unremarkable. Spleen: Unremarkable. Pancreas: Unremarkable. Gallbladder: Unremarkable. Kidney: Bilateral renal cysts are present measuring up to 4 cm. Adrenal: Unremarkable. Bowel: Unremarkable. The appendix is normal in appearance and size. Vascular: Unremarkable. Lymph: Unremarkable. Peritoneum: Unremarkable. No pneumoperitoneum is seen. No significant ascites is noted. Pelvis: Unremarkable. Soft tissue: Unremarkable. Bone: Unremarkable for age. IMPRESSION: 1. Unremarkable with no CT correlate for the patient`s symptoms seen. Dictated by Manfred Palacios MD @ 04/04/2021 7:33:10 PM Please note that all CT scans at this facility use dose modulation, iterative reconstruction, and/or weight-based dosing when appropriate to reduce radiation dose to as low as reasonably achievable. Dictated by: Manfred Palacios MD @ 04/04/2021 19:33:15 (Electronically Signed)
== END 2021-04-04 20:23 | disposition home or self-care (01) ==
LOC: MW.ED 17:19
DX: B34.9 Viral infection, unspecified (principal); J45.909 Unspecified asthma, uncomplicated; Z20.822 Contact with and (suspected) exposure to COVID-19
CPT/HCPCS: 36415; 74177; 80053; 81003; 83690; 84484; 85025; 87635; 93005; 99284; J7030; Q9967; U0002

== ENCOUNTER 2021-11-28 13:55 | Emergency (ER) | payer OTHER ==
[2021-11-28] MEDS ORDERED: Ketorolac 30 MG/ML SDV IVPUSH ONE (14:26)
[2021-11-28] MEDS ORDERED: Sodium Chloride 0.9% 1,000 ML IV ONE (14:26)
[2021-11-28 15:07] LABS: BLOOD UREA NITROGEN,BUN 21 mg/dL (7.0-18.0); CHLORIDE,CL 103 mmol/L (98-107); GLUCOSE RANDOM 130 mg/dL (74-106); SODIUM,NA 140 mmol/L (136-148)
== END 2021-11-28 16:04 | disposition home or self-care (01) ==
LOC: MW.ED 13:55
DX: B34.9 Viral infection, unspecified (principal); J45.909 Unspecified asthma, uncomplicated; Z79.899 Other long term (current) drug therapy
CPT/HCPCS: 36415; 71045; 80053; 82375; 85025; 93005; 96361; 96374; 99284; J1885; J7030; 99283